=== PATIENT | male | born 1960 | race Caucasian/White ===

== ENCOUNTER 2021-04-05 13:40 | Outpatient (REF) | payer OTHER, SELFPAY ==
[2021-04-05 15:24] LABS: MANUAL DIFF FLAG NO
[2021-04-05 15:27] LABS: Basophils Percent Auto 0.6 % (0-2); Eosinophils Absolute Auto 0.1 X10*3/uL (0.0-0.4); Eosinophils Percent Auto 1.3 % (0-4); Hematocrit 46.3 % (42-52); Hemoglobin 16.1 g/dl (14.0-18.0); Imm Gran Abs Auto 0.02 X10*3/uL (0.00-0.03); Imm Gran Pct Auto 0.3 % (0.0-0.4); Lymphocytes Absolute Auto 1.9 X10*3/uL (1.2-4.9); Lymphocytes Percent Auto 30.5 % (20-40); Mean Corpuscular HGB Conc 34.8 g/dl (31.0-36.0); Mean Corpuscular Hemoglobin 31.1 pg (27.0-33.0); Mean Corpuscular Volume 89.6 fL (80-98); Mean Platelet Volume 10.5 fL (9.4-12.4); Monocytes Absolute Auto 0.7 X10*3/uL (0.1-1.2); Monocytes Percent Auto 10.6 % (2-11); Neutrophils Absolute Auto 3.5 X10*3/uL (2.0-8.3); Neutrophils Percent Auto 56.7 % (45-73); Platelet Count 235 X10*3/uL (160-400); Red Blood Count 5.17 X10*6/uL (4.60-5.80); Red Cell Distribution Width 12.7 % (11.0-16.0); White Blood Count 6.2 X10*3/uL (4.8-10.8)
[2021-04-05 15:38] LABS: Alanine Aminotransferase 25 U/L (0-40); Albumin Level 4.5 g/dL (3.5-5.0); Alkaline Phosphatase 67 U/L (39-117); Anion Gap 10 (12-20); Aspartate Amino Transferase 24 U/L (5-37); Bilirubin Total 0.4 mg/dL (0.0-1.0); Blood Urea Nitrogen 11 mg/dL (9-16); Calcium 10.3 mg/dL (8.4-10.2); Chloride 105 mmol/L (96-108); Cholesterol 160 mg/dL; Estimated Glomerular Filt Rate > 60; Glucose Fasting 86 mg/dL (60-99); HDL Cholesterol 39 mg/dL; LDL Cholesterol Calculated 90 mg/dl; Potassium 4.2 mmol/L (3.3-5.1); Sodium 141 mmol/L (135-145); Total Protein 7.1 g/dL (6.5-8.0); Triglycerides 158 mg/dL
[2021-04-05 15:41] LABS: Carbon Dioxide 30 mmol/L (22-29)
[2021-04-05 15:58] LABS: Prostate Specific Antigen Scr 1.35 ng/mL (<0.05-4.0)
== END 2021-04-05 13:41 | disposition home or self-care (01) ==
LOC: HO.HMGCLDS 13:40
PROVIDERS: PCP Internal Medicine; Visit Provider Internal Medicine
DX: N40.0 Benign prostatic hyperplasia without lower urinary tract symptoms (principal); K57.90 Diverticulosis of intestine, part unspecified, without perforation or abscess without bleeding; Z82.3 Family history of stroke; Z12.5 Encounter for screening for malignant neoplasm of prostate
CPT/HCPCS: 36415; 80053; 80061; 84153; 85025

== ENCOUNTER 2021-07-14 11:56 | Day surgery (SDC) | payer OTHER, SELFPAY ==
[2021-07-08 11:28] VITALS: BMI 25.8
[2021-07-14 12:21] VITALS: BP 137/96; PULSE 67; RESP 16; TEMP 36.6; O2SAT 97
[2021-07-14] MEDS: Lactated Ringers 1,000 ML 50 ML IVCONT (12:30)
--- NOTE | 2021-07-14 14:18 | HO.ANESPROP2 ---
[facility] Past Medical History Medical History (Updated 07/08/21 @ 11:31 by Viktoria Morillo RN) BPH (benign prostatic hyperplasia) COVID-19 vaccine series completed Family History Family history of problems with anesthesia: No Surgical History Surgical History (Updated 07/14/21 @ 12:12 by Emily Madrid RN) H/O colonoscopy History of testicular surgery Hx of LASIK History of Problems with Anesthesia: No Social History Social History Household Members Other:: father (age 96) Are you a primary health care administrator to a significant other at home: No Do you presently have visiting nurse or other home services: No Patient Tobacco Use Status: Former Tobacco user Quit Date: 2000 Tobacco use type: Cigarette Use of substances other than those prescribed or required for medical reasons: No Have you been hit, kicked, punched, or otherwise hurt by someone within the past year? If so, by whom?: No Are you DNR?: No Advance Directives Information Provided: Yes (as above noted) Advance Directives on File: No Recently lost weight without trying: No Eating poorly because of decreased appetite: No Nutrition Risks: No Nutritional Risk Poor oral hygiene: No (one crown lower left) Meds Allergies Allergy/AdvReac Type Severity Reaction Status Date / Time apricot [APRICOT] Allergy Intermediate Hives Verified 07/08/21 11:28 onion [ONION] AdvReac Intermediate Gastrointestinal Verified 07/08/21 11:28 Upset Active Medications: Current Medications Sodium Biphosphate/Sodium Phosphate (Sodium Phosphate,[place]-Dibasic 133 Ml Enema) 133 ml TN ONCE PRN PRN Reason: Poor Colonoscopy Prep Results Home Medications Medication Instructions Recorded Confirmed Last Taken Type No Known Home Meds 07/08/21 07/08/21 Unknown History Exam Exam Date and Time: July 14, 2021 1418 Height,Weight and Vital Signs: Height 5 ft 9 in Weight 79.379 kg Last Vital Signs Temp 97.8 F 07/14/21 12: Pulse 67 07/14/21 12: Resp 16 07/14/21 12:21 BP 137/96 H 07/14/21 12:21 Pulse Ox 97 07/14/21 12:21 Airway Mallampati Class: II (Caps) TM Dist: >3cm Neck ROM: Full Heart: rrr Lungs: cta Assessment and Plan Assessment Anesthesia Assessment: Anesthesia Plan Discussed and Chart Reviewed Final Anesthetic Review Family History of Problems with Anesthesia: No History of Problems with Anesthesia: No NPO: Yes ASA Class: II Final Preanesthetic Review: No Changes in Pt Med Stat, Meds/Allgs Chart Reviewed and Consent Obtained/Reviewed Patient Risk: Intermediate Procedure Risk: Intermediate Anesthetic Plan Anesthetic Plan: MAC: Disposition: Standard PACU
[2021-07-14 15:31] VITALS: BP 121/87; PULSE 66; RESP 16; TEMP 37; O2SAT 95
--- NOTE | 2021-07-14 15:32 | P.BOP_ITS ---
Brief Operative Note Date of Service: 07/14/21 Pre-op diagnosis: Screening Post-op diagnosis: other (Diverticulosis) Procedure: Colonoscopy to the cecum and TI Surgeon: Sam Todd Anesthesia: MAC Was an Filter Changing Technician used for this Procedure?: No Estimated blood loss (mL): 0 Pathology: none sent Condition: stable Disposition: PACU
[2021-07-14 15:45] VITALS: BP 129/87; PULSE 62; RESP 18; TEMP 37.1; O2SAT 99
--- NOTE | 2021-07-14 20:27 | OP_ITS ---
SURGEON: Sam Todd MD INDICATIONS: The patient presents for evaluation of colorectal cancer screening. Full consent has been obtained from him for this, including risks of bleeding and perforation. PREOPERATIVE DIAGNOSIS: Colorectal cancer screening. POSTOPERATIVE DIAGNOSIS: PROCEDURE PERFORMED: Colonoscopy to the cecum and terminal ileum. ESTIMATED BLOOD LOSS: COMPLICATIONS: ANESTHESIA: Monitored anesthesia care. ASSISTANTS: SPECIMENS: POSTOPERATIVE DIAGNOSES: Colorectal cancer screening, mild sigmoid diverticulosis, and small internal hemorrhoids. DESCRIPTION OF PROCEDURE: The patient was placed in the left lateral decubitus position. The digital rectal exam revealed no abnormalities. The Olympus video pediatric colonoscope was entered into the rectum and advanced easily to the cecum. Once in the cecum, I did identify normal-appearing cecal pouch with appendiceal orifice and a normal-appearing ileocecal valve. The terminal ileum was cannulated and appeared normal. The scope was withdrawn back in the colon. The entire cecum and ileocecal valve appeared normal. Scope was slowly withdrawn assessing all mucosal surfaces carefully. Preparation was excellent. I did not visualize any sign of polyps, colitis, nor angiodysplasias. There was a mild amount of sigmoid diverticulosis. In the rectum, scope was retroflexed visualizing small internal hemorrhoids, but no other pathology. The rectal mucosa appeared normal. Scope was straightened out and withdrawn from the patient. He tolerated the procedure well and was returned to recovery area in stable condition. IMPRESSION: 1. Mild sigmoid diverticulosis. 2. Small internal hemorrhoids. PLAN: Given today's negative exam and no family history of colon cancer, I would recommend a followup colonoscopy in 10 years for further screening. He will otherwise see me on a p.r.n. basis. Sam Todd MD RMLuis Daniel/RISHABH / [id number]
== END 2021-07-14 16:02 | disposition home or self-care (01) ==
PROVIDERS: PCP Internal Medicine; Visit Provider Internal Medicine
PROC: 0DJD8ZZ Inspection of Lower Intestinal Tract, Via Natural or Artificial Opening Endoscopic (ICD-10-PCS; CPT 45378; principal; 2021-07-14 13:20)
DX: Z12.11 Encounter for screening for malignant neoplasm of colon (principal); K57.30 Diverticulosis of large intestine without perforation or abscess without bleeding; K64.8 Other hemorrhoids; N40.0 Benign prostatic hyperplasia without lower urinary tract symptoms; Z87.891 Personal history of nicotine dependence
CPT/HCPCS: 45378

== ENCOUNTER 2023-07-28 17:06 | Outpatient (REF) | payer OTHER, SELFPAY ==
--- NOTE | ~2023-07-28 | MR_ITS ---
EXAMINATION: MR LUMBAR SPINE WITHOUT CONTRAST CLINICAL INFORMATION: Back pain, leg numbness COMPARISON: None available. TECHNIQUE: MRI of the lumbar spine was obtained using routine sequences without the administration of intravenous contrast. FINDINGS: This examination assumes the presence of 5 lumbar type vertebral bodies. For the purposes of this examination, the L5-S1 intervertebral disc space is visualized on axial series 5 image 25. The normal lumbar lordosis is preserved. Shallow levocurvature of the lower lumbar spine. Grade 1 anterolisthesis of L2-L3, L3-L4, and L4-L5. Multilevel Schmorl's nodes are noted. Otherwise, lumbar vertebral body heights are maintained. Degenerative endplate edema along the right aspect of L4 and L5. Additional trace degenerative endplate edema at T10-T11 and T11-T12. The conus medullaris is normal in signal intensity and terminates at the level of L2 there is fatty thickening of the filum terminale. T10-T11: Only visualized on sagittal sequences. Disc bulge and osteophytic ridging indents the ventral thecal sac with probable mild to moderate canal stenosis. Severe narrowing of the bilateral neural foramen. T11-T12: Only visualized on sagittal sequence. Disc bulge without significant spinal canal stenosis. The neural foramen are patent. T12-L1: Disc bulge indents the ventral thecal sac without significant associated canal stenosis. Facet arthropathy. The neural foramen are not significantly narrowed. L1-L2: Disc bulge and facet arthropathy with ligamentum flavum redundancy. The spinal canal is patent. The neural foramen are not significantly narrowed. L2-L3: Advanced facet arthropathy with ligamentum flavum redundancy. Associated grade 1 anterolisthesis with uncovering of the intervertebral disc space. There is a diffuse disc bulge. Mild narrowing of the thecal sac and lateral recesses. Mild to moderate narrowing of the neural foramen. L3-L4: Severe facet arthropathy with ligamentum flavum redundancy. Associated grade 1 anterolisthesis with uncovering of the intervertebral disc. Diffuse disc bulge. There is mild to moderate canal stenosis with narrowing of the lateral recesses. Moderate narrowing of the bilateral neural foramen. L4-L5: Severe facet arthropathy with ligamentum flavum redundancy and bilateral facet joint effusions. Associated grade 1 anterolisthesis with uncovering of the intervertebral disc space. There is a diffuse disc bulge. Severe spinal canal stenosis with mass effect on the cauda equina nerve roots. Effacement of the lateral recesses. There is moderate to severe bilateral neural foraminal stenosis with exiting nerve root impingement. L5-S1: Advanced facet arthropathy. The spinal canal is not significantly narrowed. Mild narrowing of the neural foramen. MR/MR lumbar spine wo con IMPRESSION: 1. At L4-L5, there is severe spinal canal stenosis with mass effect on the cauda equina nerve roots and moderate to severe bilateral neural foraminal stenosis. Finding is likely on a chronic, degenerative basis, but clinical correlation for cauda equina symptomatology is recommended. 2. At T10-T11, there is probable mild to moderate canal stenosis and severe narrowing of the bilateral neural foramen. 3. At L3-L4, there is mild to moderate canal stenosis with narrowing of the lateral recesses and moderate bilateral neural foraminal stenosis. 4. Grade 1 anterolisthesis of L2-L3, L3-L4, and L4-L5 related to advanced facet arthropathy at these levels. Findings to be called to the ordering clinician by a [facility] Phys[facility] Letterpress Setter.
== END 2023-07-28 17:07 | disposition home or self-care (01) ==
LOC: HO.MRI 17:06
PROVIDERS: PCP Internal Medicine; Visit Provider Internal Medicine
DX: M54.59 Other low back pain (principal)
CPT/HCPCS: 72148